=== PATIENT | male | born 1960 | race Caucasian/White ===

== ENCOUNTER 2020-05-25 17:51 | Inpatient (IN) | payer MEDICARE, OTHER ==
[~2020-05-25] VITALS: Ht 177.8 cm; Wt 72.5 kg
[2020-05-25] MEDS ORDERED: ASPirin 81 mg TAB PO ONE (18:15)
[2020-05-25 18:44] LABS: Basophils # (auto) 0.1 10 ^3/uL (0-0.2); Basophils % (auto) 0.6 % (0.0-2.0); Eosinophils # (auto) 0.3 10 ^3/uL (0-0.8); Eosinophils % (auto) 3.2 % (0.0-7.0); Hematocrit 45.3 % (41.0-53.0); Hemoglobin 15.8 g/dL (13.5-17.5); Lymphocytes # (auto) 2.5 10 ^3/uL (0.4-5.4); Lymphocytes % (auto) 25.2 % (10.0-50.0); Mean Corpuscular Hemoglobin 31.2 pg (28.0-32.0); Mean Corpuscular Hgb Conc. 34.8 g/dL (32.0-36.0); Mean Corpuscular Volume 89.5 fL (80.0-100.0); Monocytes # (auto) 0.9 10 ^3/uL (0-1.3); Monocytes % (auto) 8.6 % (0.0-12.0); Neutrophils # (auto) 6.2 10 ^3/uL (1.6-8.6); Neutrophils % (auto) 62.4 % (37.0-80.0); Platelet Count (auto) 293 10^3/uL (140-450); Red Blood Cells 5.06 10^6/uL (4.5-5.90); Red Cell Distribution Width 14.6 % (11.8-14.3)
[2020-05-25 19:00] LABS: Alanine Aminotransferase 36 U/L (16-61); Albumin 4.6 g/dL (3.4-5.0); Anion Gap 8 (5-15); Aspartate Aminotransferase 25 U/L (15-37); BUN/Creatinine Ratio 9.5; Blood Urea Nitrogen 12 mg/dL (7-18); Calcium 9.6 mg/dL (8.5-10.1); Carbon Dioxide 27 mmol/L (21-32); Chloride 105 mmol/L (98-107); GFR African American 76 mL/min; GFR Non-African American 62 mL/min; Glucose 96 mg/dL (74-106); Magnesium 2.4 mg/dL (1.6-2.6); Sodium 140 mmol/L (136-145)
[2020-05-25 19:03] LABS: Potassium 2.7 mmol/L (3.5-5.1)
[2020-05-25 19:05] LABS: Alkaline Phosphatase 107 U/L (45-117); Bilirubin, Total 0.7 mg/dL (0.2-1.0); Total Protein 8.4 g/dL (6.4-8.2)
[2020-05-25] MEDS ORDERED: POTASSIUM CHL 20MEQ/100ML 100 ML IV ONE (19:15)
[2020-05-25] MEDS ORDERED: ALPRAZolam 0.5 MG TAB PO ONE (20:00)
[2020-05-25] MEDS ORDERED: NITROGLYCERIN 0.4 MG SL TAB SL PRN (21:15)
[2020-05-25] MEDS ORDERED: ONDANSETRON HCL 4 MG/2 ML VIAL IV PRN (21:15)
[2020-05-25] MEDS ORDERED: MORPHINE SULF INJ 2 MG/ML SYRINGE 1ML IV PRN (21:15)
[2020-05-25] MEDS ORDERED: ACETAMINOPHEN 325 MG TAB PO PRN (21:15)
[2020-05-25] MEDS ORDERED: TEMAZEPAM 15 MG CAP PO PRN (21:15)
[2020-05-25] MEDS: FAMOTIDINE 20 MG TAB PO SCH (22:00)
[2020-05-25] MEDS ORDERED: ATORVASTATIN 20 MG TAB PO SCH ×2 (22:00→22:30)
[2020-05-25] MEDS ORDERED: HYDROCORTISONE 10 MG TAB PO ONE (22:30)
[2020-05-25] MEDS ORDERED: POTASSIUM CHL 20 Meq TABLET PO ONE (22:30)
[2020-05-26 03:50] VITALS: BP 124/71
[2020-05-26 05:00] VITALS: BP 124/71
[2020-05-26] MEDS ORDERED: ALPR0.254 PO (05:07)
[2020-05-26] MEDS ORDERED: GABAPENTIN 400 MG CAP PO SCH (06:00)
[2020-05-26] MEDS ORDERED: LEVOTHYROXINE SODIUM 88 MCG TAB PO SCH (07:00)
[2020-05-26 08:00] VITALS: BP 104/70
[2020-05-26 08:11] VITALS: BP 104/70
[2020-05-26 08:27] LABS: Basophils # (auto) 0.1 10 ^3/uL (0-0.2); Basophils % (auto) 1.5 % (0.0-2.0); Eosinophils # (auto) 0.6 10 ^3/uL (0-0.8); Eosinophils % (auto) 6.2 % (0.0-7.0); Hematocrit 45.3 % (41.0-53.0); Hemoglobin 15.5 g/dL (13.5-17.5); Lymphocytes % (auto) 32.9 % (10.0-50.0); Mean Corpuscular Hgb Conc. 34.3 g/dL (32.0-36.0); Mean Corpuscular Volume 90.4 fL (80.0-100.0); Monocytes # (auto) 0.7 10 ^3/uL (0-1.3); Monocytes % (auto) 7.4 % (0.0-12.0); Neutrophils # (auto) 4.7 10 ^3/uL (1.6-8.6); Platelet Count (auto) 309 10^3/uL (140-450); Red Blood Cells 5.01 10^6/uL (4.5-5.90); Red Cell Distribution Width 14.8 % (11.8-14.3)
[2020-05-26 08:44] LABS: BUN/Creatinine Ratio 11.4; Calcium 9.2 mg/dL (8.5-10.1); Potassium 3.8 mmol/L (3.5-5.1)
[2020-05-26] MEDS ORDERED: LISINOPRIL 20 MG TAB PO SCH (10:00)
[2020-05-26] MEDS ORDERED: HCTZ 25 MG TAB PO SCH (10:00)
[2020-05-26] MEDS ORDERED: CLOPIDOGREL BISULFATE 75 MG TAB PO SCH (10:00)
[2020-05-26] MEDS ORDERED: ASPirin 81 mg TAB PO SCH (10:00)
[2020-05-26] MEDS ORDERED: HYDROCORTISONE 10 MG TAB PO SCH ×2 (10:00→22:00)
[2020-05-26] MEDS: FAMOTIDINE 20 MG TAB PO SCH (10:23)
== END 2020-05-26 11:35 | disposition left against medical advice (07) | DRG 311 ==
LOC: ER 17:51 → EDBD 17:51 → TELE 21:17 → TELE-WESTW 05-26 03:50
PROVIDERS: ADMIT Nurse Practitioner; ATTEND Internal Medicine
DX: I20.0 Unstable angina (principal); E27.1 Primary adrenocortical insufficiency; Z20.822 Contact with and (suspected) exposure to COVID-19; E87.6 Hypokalemia; E03.9 Hypothyroidism, unspecified; E78.5 Hyperlipidemia, unspecified; I12.9 Hypertensive chronic kidney disease with stage 1 through stage 4 chronic kidney disease, or unspecified chronic kidney disease; Z53.29 Procedure and treatment not carried out because of patient's decision for other reasons; N18.9 Chronic kidney disease, unspecified; Z86.16 Personal history of COVID-19; F12.90 Cannabis use, unspecified, uncomplicated; Z86.73 Personal history of transient ischemic attack (TIA), and cerebral infarction without residual deficits; Z79.899 Other long term (current) drug therapy
CPT/HCPCS: 36415; 71045; 80048; 80053; 83735; 84443; 84484; 85025; 85379; 87426; 93005; 96365; 99291; G0378; J3480